=== PATIENT | male | born 1990 | race Two or more races ===

== ENCOUNTER 2022-11-14 00:52 | Emergency (ER) | payer MEDICAID, OTHER ==
[~2022-11-14] VITALS: Ht 175.3 cm; Wt 75.0 kg
[2022-11-14] MEDS ORDERED: NALO4SPR2 (07:00)
[2022-11-14 07:54] VITALS: BP 128/82
== END 2022-11-14 08:18 | disposition home or self-care (01) ==
LOC: EDBD 00:52 → ER 00:52
DX: R07.89 Other chest pain (principal); T40.2X1A Poisoning by other opioids, accidental (unintentional), initial encounter; Y92.89 Other specified places as the place of occurrence of the external cause
CPT/HCPCS: 71045; 93005